=== PATIENT | male | born 1990 | race African-American/Black ===

== ENCOUNTER 2019-01-17 18:49 | Emergency (ER) | payer SELFPAY ==
[2019-01-17] MEDS ORDERED: HYDROCODONE/ACETAMINOPHEN 5-325 MG TABLET PO ONE (19:27)
[2019-01-17] MEDS ORDERED: LIDOCAINE 1% INJ-PF (10 MG/ML) 30 ML SDV INJ ONE (19:28)
--- NOTE | 2019-01-17 19:37 | ER Document Report ---
ED Medical Screen (RME) - General Chief Complaint: Laceration Stated Complaint: FINGER LACERATION Time Seen by Provider: 01/17/19 19:18 Notes: Patient is a 28-year-old male who presents to the emergency department with a laceration to his right index finger. He was moving a window and the window ended up cutting his finger. He is up-to-date on his immunizations. Exam: Patient is not able to fully flex his DIP joint of his right index finger. Flap laceration noted to anterior DIP joint. I have greeted and performed a rapid initial assessment of this patient. A comprehensive ED assessment and evaluation of the patient, analysis of test results and completion of medical decision making process will be conducted by an additional ED providers. - Related Data Allergies/Adverse Reactions: No Known Allergies Allergy (Verified 01/17/19 18:52) Physical Exam - Vital signs Vitals: Temp Pulse Resp BP Pulse Ox 98.2 F 88 16 128/83 H 95 01/17/19 18:51 01/17/19 18:51 01/17/19 18:51 01/17/19 18:51 01/17/19 18:51 Course - Vital Signs Vital signs: Temp Pulse Resp BP Pulse Ox 98.2 F 88 16 128/83 H 95 01/17/19 18:51 01/17/19 18:51 01/17/19 18:51 01/17/19 18:51 01/17/19 18:51
--- NOTE | 2019-01-17 20:04 | RADIOLOGY REPORT (SQ) ---
EXAM DESCRIPTION: FINGER RIGHT COMPLETED DATE/TIME: 01/17/2019 7:46 pm REASON FOR STUDY: laceration; eval foreign body COMPARISON: None. EXAM PARAMETERS: NUMBER OF VIEWS: Three views. TECHNIQUE: AP, lateral and oblique radiographic images acquired of the right hand. LIMITATIONS: None. FINDINGS: MINERALIZATION: Normal. BONES: No acute fracture or dislocation. No worrisome bone lesions. JOINTS: No effusion. SOFT TISSUES: 2nd digit distal radial aspect laceration with 1 mm radiopaque foreign body in the skin surface. OTHER: No other significant finding. IMPRESSION: NO FRACTURE.2nd digit distal radial aspect laceration with 1 mm radiopaque foreign body in the skin surface. TECHNICAL DOCUMENTATION: JOB ID: [id number] [id number] 2010 [employer]- All Rights Reserved Reading location - IP/workstation name: [email or web address]
[2019-01-17] MEDS ORDERED: HYDROCODONE/ACETAMINOPHEN 5-325 MG (6 TAB/ER DISP) PO PRN (23:41)
--- NOTE | 2019-01-17 23:41 | ER Document Report ---
ED General - General Chief Complaint: Laceration Stated Complaint: FINGER LACERATION Time Seen by Provider: 01/17/19 19:18 Notes: 28-year-old man who is right-hand dominant who had a window fall on his finger just prior to arrival. Patient complains of a laceration to his right second digit and the inability to bend his finger. Last tetanus shot was in July. - Related Data Allergies/Adverse Reactions: No Known Allergies Allergy (Verified 01/17/19 18:52) Past Medical History - General Information source: Patient - Social History Smoking Status: Current Every Day Smoker Frequency of alcohol use: None Drug Abuse: Marijuana Family History: Reviewed & Not Pertinent Patient has suicidal ideation: No Patient has homicidal ideation: No Review of Systems - Review of Systems Skin: See HPI Neurological/Psychological: See HPI Physical Exam - Vital signs Vitals: Temp Pulse Resp BP Pulse Ox 98.2 F 88 16 128/83 H 95 01/17/19 18:51 01/17/19 18:51 01/17/19 18:51 01/17/19 18:51 01/17/19 18:51 Interpretation: Normal - General General appearance: Appears well, Alert - HEENT Head: Normocephalic, Atraumatic Mucous membranes: Moist - Respiratory Respiratory status: No respiratory distress - Extremities Notes: Second digit on the right hand radial aspect reveals a 2 cm laceration that is flap shaped, somewhat curvilinear, does not treat to the bone, no tendon visualized. It is gaping. No foreign body noted. Able to fully extend at the DIP, cannot flex until numbed, then able to flex without difficulty. Sensation intact prior to numbing. Course - Re-evaluation Re-evalutation: 01/17/19 23:38 XR shows small FB, not seen on exam after irrigation. - Vital Signs Vital signs: Temp Pulse Resp BP Pulse Ox 98.2 F 88 16 128/83 H 95 01/17/19 18:51 01/17/19 18:51 01/17/19 18:51 01/17/19 18:51 01/17/19 18:51 Procedures - Immobilization Right Hand 2nd digit Immobilizer type: Finger splint (Static) Performed by: PCT Post-Proc Neuro Vasc Exam: Normal, Unchanged from pre-exam Alignment checked and good: Yes - Laceration/Wound Repair Right Hand 2nd digit Wound length (cm): 2 Wound's Depth, Shape: Into muscle, Flap Laceration pre-procedure: Sterile PPE donned, Sterile drapes applied, Shur-Clens applied Anesthetic type: 1% Lidocaine Volume Anesthetic (mLs): 4 Wound explored: Clean, No foreign body removed Wound Repaired With: Sutures Suture Size/Type: 5:0 Number of Sutures: 5 Layer Closure?: No Post-procedure wound care: Sterile dressing applied, Splint applied Post-procedure NV exam normal: Yes Complications: No Discharge - Discharge Clinical Impression: Laceration of right index finger Qualifiers: Encounter type: initial encounter Damage to nail status: without damage Foreign body presence: with foreign body Qualified Code(s): S61.220A - Laceration with foreign body of right index finger without damage to nail, initial encounter Condition: Stable Disposition: HOME, SELF-CARE Additional Instructions: Laceration Care Your laceration has been sutured to keep the skin edges aligned during healing. The time of suture removal depends on the nature and location of your cut. Please follow the care instructions the doctor has outlined for you and return for further care, according to the schedule you've been given. Keep the wound and dressing clean. Unless you were told otherwise, you may shower daily, blotting the wound dry with a clean, unused towel. At other times, If the dressing gets wet or blood soaked, remove it and blot the wound d ry, then reapply a new dressing. Unless you were instructed otherwise, dressings should be changed at least daily. If any signs of infection occur (swelling, redness, increasing tenderness, red streaks, tender lumps in the armpit or groin above the laceration, or fever), see the doctor immediately. Keep the splint on until the stitches are removed. Sutures need to be removed in 7 days. Return for swelling of the finger, pain, discharge or any new or concerning symptoms. Prescriptions: Amox Tr/Potassium Clavulanate [Augmentin 875-125 Tablet] 1 tab PO BID 7 Days tablet Forms: Return to Work
[2019-01-18 00:10] VITALS: BP 138/90
== END 2019-01-18 00:07 | disposition home or self-care (01) ==
LOC: ER 18:49
PROC: 0HQFXZZ Repair Right Hand Skin, External Approach (ICD-10-PCS; principal; 2019-01-17)
DX: S61.220A Laceration with foreign body of right index finger without damage to nail, initial encounter (principal); W45.8XXA Other foreign body or object entering through skin, initial encounter; F17.200 Nicotine dependence, unspecified, uncomplicated
CPT/HCPCS: 73140; 12001; J3490; 99283